=== PATIENT | male | born 1940 | race Caucasian/White ===

== ENCOUNTER 2017-04-21 10:55 | Emergency (ER) | payer MEDICARE ==
[2017-04-21 11:28] VITALS: BP 170/85
[2017-04-21] MEDS ORDERED: Lidocaine 1% 20 ML MDV INJECT ONE (11:42)
[2017-04-21] MEDS ORDERED: Bacitracin Oint 1 GM U/D Packet TOP ONE (11:42)
--- NOTE | 2017-04-21 11:54 | EDM.PDOC ---
ED HPI GENERAL MEDICAL PROBLEM - General Chief Complaint: Laceration Stated Complaint: CUT TOP OF HEAD Time Seen by Provider: 04/21/17 11:43 Source of Information: Reports: Patient History Limitations: Reports: No Limitations - History of Present Illness INITIAL COMMENTS - FREE TEXT/NARRATIVE: pt hit his head on duct work in the basement. He has a 1 1/4 inch lac on the top of his head. He was not knocked out and he did not have any further symptoms. Onset: Today Duration: Hour(s): Location: Reports: Head Associated Symptoms: Reports: No Other Symptoms - Related Data Allergies Allergy/AdvReac Type Severity Reaction Status Date / Time No Known Allergies Allergy Verified 04/21/17 11:28 Past Medical History Cardiovascular History: Reports: High Cholesterol, [place] - Infectious Disease History Infectious Disease History: Reports: Chicken Pox, Measles, Mumps Social & Family History - Tobacco Use Smoking Status *Q: Unknown Ever Smoked ED ROS GENERAL - Review of Systems Review Of Systems: See Below Constitutional: Reports: No Symptoms HEENT: Reports: No Symptoms Respiratory: Reports: No Symptoms Cardiovascular: Reports: No Symptoms Endocrine: Reports: No Symptoms GI/Abdominal: Reports: No Symptoms : Reports: No Symptoms Skin: Reports: Other (laceration on the top of his head. ) ED EXAM, SKIN/RASH Exam: See Below Exam Limited By: No Limitations General Appearance: Alert Head: Other ( pt has a 1.25 inch lac on the top of his head, neuro wells he is normal. ) Course - Vital Signs Last Recorded V/S: Last Vital Signs Temp 35.9 C 04/21/17 11:25 Pulse 58 L 04/21/17 11:25 Resp 15 04/21/17 11:25 BP 170/85 H 04/21/17 11:25 Pulse Ox 97 04/21/17 11:25 - Orders/Labs/Meds Meds: Medications Discontinued Medications Generic Name Dose Route Start Last Admin Trade Name Freq PRN Reason Stop Dose Admin Bacitracin 1 dose 04/21/17 11:42 Bacitracin Oint 1 Gm TOP 04/21/17 11:43 ONETIME ONE Lidocaine HCl 20 ml 04/21/17 11:42 Xylocaine 1% INJECT 04/21/17 11:43 ONETIME ONE - Re-Assessments/Exams Free Text/Narrative Re-Assessment/Exam: 04/21/17 12:09 The area was cleansed well and infiltrated with lidocaine. The wound was brought together with 3-0 ethilon. It was closed tightly. The scalp will be cleaned and bacatracin will be applied. v Departure - Departure Time of Disposition: 12:11 Disposition: Home, Self-Care 01 Condition: Fair Clinical Impression: Laceration - Discharge Information Forms: ED Department Discharge Care Plan Goals: Pt may shampo after he gets home and after that keep it dry, after shampoing today he can apply bacatracin. . Keepdry and have stitches removed in 7-8 days.
== END 2017-04-21 12:48 | disposition home or self-care (01) ==
LOC: JP.ED 10:55
DX: S01.01XA Laceration without foreign body of scalp, initial encounter (principal); E78.00 Pure hypercholesterolemia, unspecified; I25.2 Old myocardial infarction; W22.8XXA Striking against or struck by other objects, initial encounter
CPT/HCPCS: 12001; 12002; 99282-25; 99283-25